=== PATIENT | female | born 2000 | race Hispanic/Latino ===

== ENCOUNTER 2022-08-20 12:34 | Emergency (ER) | payer OTHER ==
[~2022-08-20] VITALS: Ht 154.9 cm; Wt 81.6 kg
[2022-08-20] MEDS ORDERED: SODIUM CHLORIDE 0.9% 1000ML 1,000 ML IV ONE (13:00)
[2022-08-20] MEDS ORDERED: ONDANSETRON HCL INJ 2MG/ML 2ML 2 MG/ML VIAL IV STA (13:05)
[2022-08-20] MEDS ORDERED: Morphine 4mg INJECTION 4 MG/ML INJ ONE (13:13)
[2022-08-20] MEDS ORDERED: ONDANSETRON HCL INJ 2MG/ML 2ML 2 MG/ML VIAL ONE (13:13)
[2022-08-20] MEDS ORDERED: SODIUM CHLORIDE 0.9% 1000ML 1,000 ML ONE (13:13)
[2022-08-20] MEDS ORDERED: Morphine 2mg Syringe 2 MG/ML SYR IV ONE (13:15)
[2022-08-20] MEDS ORDERED: Morphine 4mg INJECTION 4 MG/ML INJ IV ONE ×2 (13:30)
[2022-08-20 14:46] VITALS: BP 135/90; PULSE 80; RESP 18; TEMP 98.1; O2SAT 97
== END 2022-08-20 14:50 | disposition home or self-care (01) ==
LOC: FSED 12:51
DX: R30.0 Dysuria (principal); R10.32 Left lower quadrant pain; N83.291 Other ovarian cyst, right side; R11.0 Nausea
CPT/HCPCS: 74176; 76830; 76856; 80053; 81003; 81025; 85025; 99283; J2270; J2405; J7030